=== PATIENT | male | born 1995 | race Caucasian/White ===

== ENCOUNTER 2020-05-25 16:44 | Emergency (ER) | payer OTHER ==
--- NOTE | 2020-05-25 18:50 | ED Physician Documentation ---
History of Present Illness - Stated complaint Stated Complaint: MALE - Chief complaint Chief Complaint: Abd Pain - Additonal information Additional information: 24-year-old male presents the emergency department for evaluation of 4 days left testicular pain. No swelling. No history of similar. He reports that he may have mild dysuria but is unsure of the symptom. He denies that he is ever been sexually active or received or given penetrative rectal sex. He does masturbate denies painful ejaculations or bloody ejaculate. He does state that over the last few weeks he is having a more difficult time achieving erections. No hist ory of undescended testes or family history of testicular cancer. Review of Systems Constitutional: reports: Reviewed and negative Eyes: reports: Reviewed and negative Ears: reports: Reviewed and negative Throat: reports: Reviewed and negative Cardiac: reports: Reviewed and negative Respiratory: reports: Reviewed and negative GI: reports: Reviewed and negative : reports: Testicular pain, Reviewed and negative. denies: Dysuria, Hematuria, Testicular mass Skin: denies: Rash, Lesions Musculoskeletal: reports: Reviewed and negative Neurologic: reports: Reviewed and negative PD PAST MEDICAL HISTORY - Past Medical History Past Medical History: No - Past Surgical History Past Surgical History: No - Present Medications Home Medications: Ambulatory Orders Medication Instructions Recorded Confirmed Ibuprofen [Motrin] 600 mg PO Q6H PRN #30 tab 05/25/20 - Allergies Allergies/Adverse Reactions: Allergies Allergy/AdvReac Type Severity Reaction Status Date / Time No Known Drug Allergies Allergy Verified 05/25/20 16:52 - Social History Does the pt smoke?: No Smoking Status: Never smoker PD ED PE EXPANDED - General General: Alert, No acute distress - Male Male : Circumcised (Positive cremasteric bilaterally. No scrotal swelling or erythema. Tenderness with gentle palpation of the left testy. It does not feel enlarged no variceal or hydrocele was palpated. No inguinal lymphadenopathy. 2+ femoral pulse bilaterally.) Results - Vitals Vitals: Vital Signs - 24 hr 05/25/20 05/25/20 05/25/20 16:54 18:36 20:00 Temperature 36.7 C Heart Rate 89 84 78 Respiratory 16 20 19 Rate Blood Pressure 115/78 147/87 H 113/101 H O2 Saturation 100 100 100 Oxygen O2 Source Room air - Labs Labs: Laboratory Tests 02/23/21 18:30 Urine Color DARK YELLOW Urine Clarity CLEAR Urine pH 6.0 Ur Specific Parrott >=1.030 H Urine Protein NEGATIVE Urine Glucose (UA) NEGATIVE Urine Ketones >=80 H Urine Occult Blood NEGATIVE Urine Nitrite NEGATIVE Urine Bilirubin NEGATIVE Urine Urobilinogen 0.2 (NORMAL) Ur Leukocyte Esterase NEGATIVE Ur Microscopic Review NOT INDICATED Urine Culture Comments NOT INDICATED - Rads (name of study) testicular ultrasound Radiology: See rad report, Other (Neurologist mild variceal of the left scrotum as well as a small hydrocele also of the left scrotum) PD MEDICAL DECISION MAKING - ED course Complexity details: reviewed results, re-evaluated patient, d/w patient ED course: 24-year-old male presents the emergency department with 4 days of left testicular pain. On exam positive cremasteric. UA shows no signs of infection. GC pending but patient denies any previous history of sexual activity. The testicle was tender on exam. Ultrasound of the testicle did show no torsion. However there was a small variceal as well as a hydrocele. These findings were discussed with the patient. He will be started on a course of NSAIDs and advised to follow-up with [facility]. If not improved over the next 7 to 10 days consider referral to urology. Emergent return precautions were discussed. Departure - Departure Disposition: 01 Home, Self Care Clinical Impression: Left varicocele, Hydrocele, left Condition: Stable Record reviewed to determine appropriate education?: Yes Instructions: ED Varicocele Prescriptions: Ibuprofen [Motrin] 600 mg PO Q6H PRN #30 tab PRN Reason: Pain Comments: Tyler the ultrasound of your scrotum showed a varicocele on the left scrotum. This is essentially an engorged blood vessel. Elevating the scrotum and taking ibuprofen should help. If pain is not better over the next week please see [facility]. At that point you should be referred to a urologist. Return immediately to the emergency department if you develop fevers, have scrotal or or testicular swelling, uncontrolled abdominal pain fevers or vomiting.
[2020-05-25 19:10] LABS: GLUCOSE, URINE (UA) NEGATIVE (NEGATIVE); KETONES,URINE (UA) >=80 mg/dL (NEGATIVE); LEUKOCYTE ESTERASE, URINE NEGATIVE (NEGATIVE); NITRITE,URINE NEGATIVE (NEGATIVE); OCCULT BLOOD,URINE NEGATIVE (NEGATIVE); PROTEIN,URINE NEGATIVE (NEGATIVE); UROBILINOGEN,URINE 0.2 (NORMAL) E.U./dL (NORMAL)
[2020-05-25 19:13] LABS: BILIRUBIN,URINE NEGATIVE (NEGATIVE); ICTOTEST,URINE NEGATIVE
[2020-05-25 19:14] LABS: CLARITY,URINE CLEAR (CLEAR)
[2020-05-25 21:08] VITALS: BP 130/82
--- NOTE | 2020-05-25 22:41 | Ultrasound Report ---
PROCEDURE: Testicle w/Doppler INDICATIONS: testicle pain/swelling TECHNIQUE: Real-time scanning was performed of the scrotum and testicles, with image documentation. Color and p ulse Doppler interrogation was performed of both testicles. COMPARISON: None. FINDINGS: Right: Testicle is normal in size at 5.0 x 2.6 x 2.9 cm, and homogenous in echotexture. Epididymis is normal in overall size and morphology. Small hydrocele. No varicoceles. Overlying scrotal skin is normal in thickness. Left: Testicle is normal in size at 5.3 x 2.6 x 2.5 cm, and homogeneous in echotexture. Epididymis is normal in overall size and morphology. Small hydrocele. There are varicoceles. Overlying scrotal skin is normal in thickness. Doppler: Color and pulse Doppler demonstrate normal and symmetric arterial flow in both testicles. IMPRESSION: 1. No ultrasound findings to suggest testicular torsion. No testicular mass. 2. No findings to suggest epididymitis. 3. Bilateral small hydroceles. 4. Left varicoceles. Reviewed by: Greg Olivarez MD on 05/25/2020 10:40 PM PST Approved by: Greg Olivarez MD on 05/25/2020 10:40 PM PST Station ID: [id number]
== END 2020-05-25 21:14 | disposition home or self-care (01) ==
LOC: ED 16:44
DX: I86.1 Scrotal varices (principal); N43.3 Hydrocele, unspecified
CPT/HCPCS: 81001; 81003; 87086; 87491; 87591; 87661; 93975; 99283; 99284

== ENCOUNTER 2021-10-02 08:00 | Outpatient (CLI) | payer OTHER ==
[2021-10-02 23:32] LABS: CHLAMYDIA TRACHOMATIS DNA NEGATIVE (NEGATIVE); NEISSERIA GONORRHOEAE DNA NEGATIVE (NEGATIVE)
== END 2021-10-02 23:59 | disposition home or self-care (01) ==
LOC: LAB.N 08:00
PROVIDERS: ATTEND Physician Assistant Medical
DX: Z11.3 Encounter for screening for infections with a predominantly sexual mode of transmission (principal)
CPT/HCPCS: 87491; 87591; 87661

== ENCOUNTER 2021-10-03 12:13 | Outpatient (CLI) | payer OTHER ==
[2021-10-04 05:07] LABS: HCV AB <0.1 s/co ratio (0.0-0.9); HIV SCREEN 4TH GENERATION Non Reactive (Non Reactive)
[2021-10-05 06:09] LABS: RPR Non Reactive (Non Reactive)
== END 2021-10-03 12:14 | disposition home or self-care (01) ==
LOC: LAB.N 12:13
PROVIDERS: ATTEND Physician Assistant Medical
DX: Z11.3 Encounter for screening for infections with a predominantly sexual mode of transmission (principal)
CPT/HCPCS: 36415; 86592; 86803; 87389; 87491; 87536; 87591; 87661